=== PATIENT | male | born 1935 | race Caucasian/White ===

== ENCOUNTER → 2017-01-19 | Outpatient (CLI) | payer BC, MEDICARE ==
[~2017-01-19] MED LIST: ALBU8.5H3 INH; ALPR1TAB10 PO; ATOR10TA PO; CHOL200040 PO; FOSI10TA PO; FURO-93 PO; LATA2.5D2 OP; OMEP-110 PO; POTA20TA91 PO; WARF3TAB PO
== END | disposition home or self-care (01) ==
LOC: ROC 07:57
PROVIDERS: ATTEND Radiology Radiation Oncology
DX: C71.9 Malignant neoplasm of brain, unspecified (principal)
CPT/HCPCS: 99213; G0463

== ENCOUNTER 2018-05-05 13:21 | Inpatient (IN) | payer BC, MEDICARE ==
[~2018-05-05] VITALS: Ht 170.2 cm; Wt 77.8 kg
[~2018-05-05 13:21] MED LIST changes: -ALBU8.5H3 INH; +ALBU8.5H8 INH
[2018-05-05 15:53] VITALS: BP 153/79
[2018-05-05 18:39] VITALS: BP 168/71
[2018-05-05] MEDS ORDERED: POLYETHYLENE GLYCOL 17 GM PACKET PO PRN (19:30)
[2018-05-05] MEDS ORDERED: ONDANSETRON ODT 4 MG PO PRN (19:30)
[2018-05-05] MEDS ORDERED: BISACODYL 10 MG SUPP PR PRN (19:30)
[2018-05-05] MEDS ORDERED: ALBUTEROL SULFATE 2.5 MG/3 ML NPPB SCH (19:30)
[2018-05-05] MEDS ORDERED: ALPRazolam 1MG TABLET PO SCH (21:00)
[2018-05-05] MEDS: ATORVASTATIN 10 MG TABLET PO SCH (22:34)
[2018-05-05] MEDS: PLEASE ENTER HEIGHT AND WEIGHT MC SCH (22:34)
[2018-05-05] MEDS: FUROSEMIDE 20 MG TABLET PO SCH ×2 (22:34→22:37)
[2018-05-05] MEDS: SODIUM CHLORIDE FLUSH 10ML SYR IVF SCH (22:34)
[2018-05-05] MEDS: ACETAMINOPHEN 325 MG TABLET PO PRN (22:41)
[2018-05-05] MEDS: FOSINOPRIL 20MG TABLET PO SCH (22:50)
[2018-05-06 00:27] VITALS: BP 147/69
[2018-05-06 01:26] LABS: BASOPHILS # (AUTO) 0.02 x10^3/uL (0-0.1); BASOPHILS % (AUTO) 0 % (0-1); EOSINOPHILS # (AUTO) 0.17 x10^3/uL (0-0.4); EOSINOPHILS % (AUTO) 3 % (1-7); LYMPHOCYTES # (AUTO) 1.32 x10^3/uL (1-3.4); LYMPHOCYTES % (AUTO) 24 % (22-44); MD NO; MEAN CORPUSCULAR HEMOGLOBIN 29.4 pg (27.5-34.5); MEAN CORPUSCULAR HGB CONC 33.5 g/dL (33.2-36.2); MEAN CORPUSCULAR VOLUME 87.6 fL (81-97); MEAN PLATELET VOLUME 7.9 fL (7.4-10.4); MONOCYTES # (AUTO) 0.61 x10^3/uL (0.2-0.8); MONOCYTES % (AUTO) 11 % (2-9); NEUTROPHILS # (AUTO) 3.32 x10^3/uL (1.8-6.8); NEUTROPHILS % (AUTO) 61 % (42-75); PLATELET COUNT 190 x10^3/uL (130-400); RED BLOOD COUNT 3.37 x10^6/uL (4.38-5.82); RED CELL DISTRIBUTION WIDTH 20.9 % (9.4-14.8)
[2018-05-06 01:32] LABS: INTERNATIONAL NORMALIZED RATIO 2.16 (0.93-1.1); PROTHROMBIN TIME 21.9 Seconds (9.6-11.5)
[2018-05-06 01:35] LABS: ALANINE AMINOTRANSFERASE 15 U/L (12-78); ANION GAP 6 mmol/L (5-15); CALCIUM 8.7 mg/dL (8.5-10.1); CHLORIDE 103 mmol/L (98-107); CREATININE 0.77 mg/dL (0.7-1.3); TOTAL IRON BINDING CAPACITY 268 mcg/dL (250-450)
[2018-05-06 01:38] LABS: % IRON SATURATION 18 % (20-55); ALKALINE PHOSPHATASE 180 U/L (45-117); BILIRUBIN,TOTAL 1.4 mg/dL (0.2-1.0); IRON LEVEL 48 mcg/dL (65-175); TOTAL PROTEIN 6.1 g/dL (6.4-8.2); TROPONIN I 0.034 ng/mL (0.000-0.045)
[2018-05-06] MEDS: PLEASE ENTER HEIGHT AND WEIGHT MC SCH (04:00)
[2018-05-06] MEDS ORDERED: ALBUTEROL SULFATE 2.5 MG/3 ML NPPB PRN (07:00)
[2018-05-06] MEDS: SENNA/DOCUSATE TABLET PO SCH (08:42)
[2018-05-06] MEDS: SODIUM CHLORIDE FLUSH 10ML SYR IVF SCH ×2 (08:54→21:58)
[2018-05-06 08:55] VITALS: BP 160/69
[2018-05-06] MEDS: OMEPRAZOLE 20 MG CAPSULE.DR PO SCH (09:00)
[2018-05-06] MEDS: FOSINOPRIL 20MG TABLET PO SCH ×2 (09:00→21:42)
[2018-05-06] MEDS: CHOLECALCIFEROL 1,000 UNIT TABLET PO SCH (09:14)
[2018-05-06] MEDS: POTASSIUM CHLORIDE 20 MEQ TAB.ER.PRT PO SCH (09:15)
[2018-05-06] MEDS: FUROSEMIDE 20 MG TABLET PO SCH ×2 (09:15→16:43)
[2018-05-06] MEDS: ACETAMINOPHEN 325 MG TABLET PO PRN (11:16)
[2018-05-06 13:27] VITALS: BP 156/65
[2018-05-06 19:23] VITALS: BP 152/81
[2018-05-06] MEDS: ATORVASTATIN 10 MG TABLET PO SCH (21:41)
[2018-05-07 00:03] VITALS: BP 159/69
[2018-05-07 05:26] LABS: BASOPHILS # (AUTO) 0.03 x10^3/uL (0-0.1); BASOPHILS % (AUTO) 1 % (0-1); EOSINOPHILS % (AUTO) 4 % (1-7); LYMPHOCYTES # (AUTO) 1.31 x10^3/uL (1-3.4); LYMPHOCYTES % (AUTO) 27 % (22-44); MD NO; MEAN CORPUSCULAR HEMOGLOBIN 29.2 pg (27.5-34.5); MEAN CORPUSCULAR HGB CONC 33.4 g/dL (33.2-36.2); MEAN CORPUSCULAR VOLUME 87.3 fL (81-97); MEAN PLATELET VOLUME 8.1 fL (7.4-10.4); MONOCYTES # (AUTO) 0.53 x10^3/uL (0.2-0.8); MONOCYTES % (AUTO) 11 % (2-9); NEUTROPHILS # (AUTO) 2.73 x10^3/uL (1.8-6.8); NEUTROPHILS % (AUTO) 57 % (42-75); PLATELET COUNT 181 x10^3/uL (130-400); RED BLOOD COUNT 3.35 x10^6/uL (4.38-5.82); RED CELL DISTRIBUTION WIDTH 21.1 % (9.4-14.8)
[2018-05-07 05:29] LABS: ALANINE AMINOTRANSFERASE 16 U/L (12-78); ALBUMIN 2.9 g/dL (3.4-5.0); ANION GAP 8 mmol/L (5-15); CALCIUM 8.9 mg/dL (8.5-10.1); CHLORIDE 106 mmol/L (98-107); CREATININE 0.63 mg/dL (0.7-1.3)
[2018-05-07 05:31] LABS: ALKALINE PHOSPHATASE 171 U/L (45-117); BILIRUBIN,TOTAL 1.5 mg/dL (0.2-1.0)
[2018-05-07 06:37] LABS: INTERNATIONAL NORMALIZED RATIO 1.36 (0.93-1.1); PROTHROMBIN TIME 13.9 Seconds (9.6-11.5)
[2018-05-07 07:33] VITALS: BP 151/78
[2018-05-07] MEDS: SENNA/DOCUSATE TABLET PO SCH (08:02)
[2018-05-07] MEDS: FUROSEMIDE 20 MG TABLET PO SCH ×2 (08:10→18:15)
[2018-05-07] MEDS: SODIUM CHLORIDE FLUSH 10ML SYR IVF SCH ×2 (08:11→20:25)
[2018-05-07] MEDS: FOSINOPRIL 20MG TABLET PO SCH ×2 (08:11→20:23)
[2018-05-07] MEDS: OMEPRAZOLE 20 MG CAPSULE.DR PO SCH (08:11)
[2018-05-07] MEDS: CHOLECALCIFEROL 1,000 UNIT TABLET PO SCH (08:12)
[2018-05-07] MEDS: POTASSIUM CHLORIDE 20 MEQ TAB.ER.PRT PO SCH (08:12)
[2018-05-07 12:32] VITALS: BP 144/80
[2018-05-07 19:16] VITALS: BP_SYST 166; BP_SYST 180; BP_DIAS 89; BP_DIAS 91
[2018-05-07 20:11] VITALS: BP 157/68
[2018-05-07] MEDS: ATORVASTATIN 10 MG TABLET PO SCH (20:23)
[2018-05-08 01:42] VITALS: BP 160/63
[2018-05-08 06:53] VITALS: BP 153/90
[2018-05-08] MEDS ORDERED: SODIUM CHLORIDE 0.9% 1,000 ML IV SCH (08:52)
[2018-05-08] MEDS ORDERED: VANCOMYCIN PMX 1GM/200ML 200 ML IVPB SCH (09:00)
[2018-05-08] MEDS: FOSINOPRIL 20MG TABLET PO SCH ×2 (09:48→20:27)
[2018-05-08] MEDS: CHOLECALCIFEROL 1,000 UNIT TABLET PO SCH (09:49)
[2018-05-08] MEDS: OMEPRAZOLE 20 MG CAPSULE.DR PO SCH (09:49)
[2018-05-08] MEDS: SODIUM CHLORIDE FLUSH 10ML SYR IVF SCH ×3 (09:50→20:29)
[2018-05-08] MEDS: FUROSEMIDE 20 MG TABLET PO SCH ×2 (09:50→17:36)
[2018-05-08] MEDS: POTASSIUM CHLORIDE 20 MEQ TAB.ER.PRT PO SCH (09:50)
[2018-05-08] MEDS: SENNA/DOCUSATE TABLET PO SCH (09:50)
[2018-05-08] MEDS ORDERED: FENTANYL PF 100 MCG/2ML ONE (12:54)
[2018-05-08] MEDS ORDERED: VANCOMYCIN 500 MG ONE (12:54)
[2018-05-08] MEDS ORDERED: MIDAZOLAM 1 MG/ML, 2ML ONE (12:54)
[2018-05-08] MEDS ORDERED: VANCOMYCIN PMX 1GM/200ML 200 ML ONE (12:54)
[2018-05-08] MEDS ORDERED: LIDOCAINE/PF 1%, 30ML ONE (12:54)
[2018-05-08] MEDS ORDERED: ACETAMINOPHEN 325 MG TABLET PO PRN (14:00)
[2018-05-08] MEDS ORDERED: HOLD MEDICATION MC PRN (14:00)
[2018-05-08] MEDS: ACETAMINOPHEN 325 MG TABLET PO PRN ×2 (15:19→20:33)
[2018-05-08 15:30] VITALS: BP 162/79
[2018-05-08] MEDS: METOPROLOL TARTRATE 25 MG TABLET PO SCH (17:35)
[2018-05-08 19:30] VITALS: BP 133/83
[2018-05-08] MEDS: ATORVASTATIN 10 MG TABLET PO SCH (20:27)
[2018-05-09 01:20] VITALS: BP 152/83
[2018-05-09] MEDS ORDERED: VANCOMYCIN PMX 1GM/200ML 200 ML IVPB ONE (01:30)
[2018-05-09] MEDS ORDERED: VANCOMYCIN 1,000 MG in SODIUM CHLORIDE 0.9% 250 ML IV SCH (03:30)
[2018-05-09] MEDS: METOPROLOL TARTRATE 25 MG TABLET PO SCH (06:12)
[2018-05-09 07:10] VITALS: BP 133/77
[2018-05-09] MEDS: FUROSEMIDE 20 MG TABLET PO SCH (09:21)
[2018-05-09] MEDS: OMEPRAZOLE 20 MG CAPSULE.DR PO SCH (09:22)
[2018-05-09] MEDS: POTASSIUM CHLORIDE 20 MEQ TAB.ER.PRT PO SCH (09:22)
[2018-05-09] MEDS: CHOLECALCIFEROL 1,000 UNIT TABLET PO SCH (09:22)
[2018-05-09] MEDS: FOSINOPRIL 20MG TABLET PO SCH (09:23)
[2018-05-09] MEDS: SODIUM CHLORIDE FLUSH 10ML SYR IVF SCH ×2 (09:24)
[2018-05-09] MEDS: SENNA/DOCUSATE TABLET PO SCH (09:24)
[2018-05-09] MEDS ORDERED: METO25TA35 PO (09:38)
[2018-05-09] MEDS: ACETAMINOPHEN 325 MG TABLET PO PRN (12:08)
[2018-05-09 12:20] VITALS: BP 147/74
== END 2018-05-09 13:56 | disposition home or self-care (01) | DRG 243 ==
LOC: 5SO 15:45 → DCLOUNGE 05-09 13:49
PROVIDERS: ADMIT Internal Medicine; ATTEND Family Medicine
PROC: 0JH604Z Insertion of Pacemaker, Single Chamber into Chest Subcutaneous Tissue and Fascia, Open Approach (ICD-10-PCS; principal; 2018-05-08)
PROC: 02HK3JZ Insertion of Pacemaker Lead into Right Ventricle, Percutaneous Approach (ICD-10-PCS; 2018-05-08)
DX: I49.5 Sick sinus syndrome (principal); D68.51 Activated protein C resistance; D68.69 Other thrombophilia; Q21.1 Atrial septal defect; R00.1 Bradycardia, unspecified; D18.03 Hemangioma of intra-abdominal structures; D64.9 Anemia, unspecified; E78.5 Hyperlipidemia, unspecified; H91.90 Unspecified hearing loss, unspecified ear; I08.1 Rheumatic disorders of both mitral and tricuspid valves; I10 Essential (primary) hypertension; I48.2 Chronic atrial fibrillation; K21.9 Gastro-esophageal reflux disease without esophagitis; R32 Unspecified urinary incontinence; Z66 Do not resuscitate; Z79.01 Long term (current) use of anticoagulants; Z82.49 Family history of ischemic heart disease and other diseases of the circulatory system; Z85.828 Personal history of other malignant neoplasm of skin; Z86.718 Personal history of other venous thrombosis and embolism; Z86.73 Personal history of transient ischemic attack (TIA), and cerebral infarction without residual deficits; Z95.0 Presence of cardiac pacemaker; R15.9 Full incontinence of feces; Z88.0 Allergy status to penicillin; Z88.8 Allergy status to other drugs, medicaments and biological substances
CPT/HCPCS: 33207; 36415; 71045; 80053; 83540; 83550; 84484; 85025; 85610; 93005; 93306; 99156; C1779; C1786; C1892; G0378; J2250; J3010; J3370; J3490; J7030